=== PATIENT | female | born 1935 | race Caucasian/White ===

== ENCOUNTER → 2018-05-04 | Outpatient (CLI) | payer OTHER ==
[~2018-05-04] MED LIST: ASACOL HD800 MG PO; AVALIDE 300-251 EACH PO; COZAAR 50 MG TA50 M2 PO; CYMBALTA60 MG PO; GLIPIZIDE 10 MG10 MG PO; GLIPIZIDE ER5 MG PO; GLUCOPHAGE XR500 MG PO; HYDROCHLOROTH12.5 M1 PO; IBU600 MG PO; IBUPROFEN 800800 M1 PO; IMURAN 50MG TAB50 M1 PO; IRON 100 PLUS1 EACH PO; KLOR-CON 1010 MEQ PO; LAC-HYDRIN FIV226 GM TOP; LASIX 20 MG TAB20 MG PO; LOMOTIL TABLET1 EACH PO; MEDROL4 MG PO; MIRAPEX1 MG PO; NEURONTIN 300300 M1 PO; OPIUM TINC10 MG/1 M1 PO; REQUIP0.5 MG PO; VIT E; VITAMIN D1000 UNI1 PO; VITAMIN E400 UNIT PO; VITAMINC500 PO; XIFAXAN550 M1 PO; ZANTAC 150MG T150 MG PO; ZOCOR 20 MG TAB20 M1 PO; ZOCOR20 MG PO; [UNRECOGNIZED DRUG - OTHER]
== END ==
LOC: HYPER 04-28 08:40
DX: E11.621 Type 2 diabetes mellitus with foot ulcer (principal); L89.613 Pressure ulcer of right heel, stage 3; L97.411 Non-pressure chronic ulcer of right heel and midfoot limited to breakdown of skin; L03.116 Cellulitis of left lower limb; L03.115 Cellulitis of right lower limb; E11.40 Type 2 diabetes mellitus with diabetic neuropathy, unspecified; E11.36 Type 2 diabetes mellitus with diabetic cataract; E11.39 Type 2 diabetes mellitus with other diabetic ophthalmic complication; H40.9 Unspecified glaucoma; E11.51 Type 2 diabetes mellitus with diabetic peripheral angiopathy without gangrene; I10 Essential (primary) hypertension; I89.0 Lymphedema, not elsewhere classified; E66.9 Obesity, unspecified; E78.5 Hyperlipidemia, unspecified; K21.9 Gastro-esophageal reflux disease without esophagitis; M19.90 Unspecified osteoarthritis, unspecified site; Z79.84 Long term (current) use of oral hypoglycemic drugs; Z85.59 Personal history of malignant neoplasm of other urinary tract organ; Z98.49 Cataract extraction status, unspecified eye; Z68.39 Body mass index [BMI] 39.0-39.9, adult

== ENCOUNTER → 2018-05-08 | Outpatient (CLI) | payer OTHER ==
[~2018-05-08] VITALS: Ht 152.4 cm; Wt 90.7 kg
[2018-05-08 08:26] VITALS: BP 177/71
[2018-05-08 08:35] LABS: HEMATOCRIT 31.3 % (37.0-47.0); HEMOGLOBIN 10.6 gm/dL (12.0-15.0); MCH 28.7 pg (26.0-34.0); MCHC 33.8 g/dL (28.0-37.0); MCV 84.8 fL (80.0-100.0); RBC 3.69 mil/uL (4.20-5.00); RDW 14.7 % (10.5-14.5); WBC 6.9 thou/uL (4.0-11.0)
[2018-05-08 08:45] LABS: CALCIUM 8.8 mg/dL (8.5-10.1); CREATININE 1.1 mg/dL (0.6-1.0); POTASSIUM 4.2 mmol/L (3.5-5.1)
== END | disposition home or self-care (01) ==
LOC: SPEC 07:36
PROVIDERS: Radiology Vascular & Interventional Radiology
DX: M80.88XA Other osteoporosis with current pathological fracture, vertebra(e), initial encounter for fracture (principal); K50.90 Crohn's disease, unspecified, without complications; Z90.710 Acquired absence of both cervix and uterus; Z98.890 Other specified postprocedural states; E11.40 Type 2 diabetes mellitus with diabetic neuropathy, unspecified; I10 Essential (primary) hypertension

== ENCOUNTER → 2018-05-25 | Outpatient (CLI) | payer OTHER | LOC: HYPER 07:04 | DX: E11.621 Type 2 diabetes mellitus with foot ulcer (principal); L97.411 Non-pressure chronic ulcer of right heel and midfoot limited to breakdown of skin; L89.613 Pressure ulcer of right heel, stage 3; E11.40 Type 2 diabetes mellitus with diabetic neuropathy, unspecified; E11.36 Type 2 diabetes mellitus with diabetic cataract; E11.39 Type 2 diabetes mellitus with other diabetic ophthalmic complication; H40.89 Other specified glaucoma; E11.51 Type 2 diabetes mellitus with diabetic peripheral angiopathy without gangrene; I89.0 Lymphedema, not elsewhere classified; I10 Essential (primary) hypertension; L03.116 Cellulitis of left lower limb; L03.115 Cellulitis of right lower limb; E66.9 Obesity, unspecified; E78.5 Hyperlipidemia, unspecified; Z85.54 Personal history of malignant neoplasm of ureter; K21.9 Gastro-esophageal reflux disease without esophagitis; M19.90 Unspecified osteoarthritis, unspecified site; Z68.39 Body mass index [BMI] 39.0-39.9, adult; Z79.84 Long term (current) use of oral hypoglycemic drugs; Z98.49 Cataract extraction status, unspecified eye ==

== ENCOUNTER → 2018-06-09 | Outpatient (CLI) | payer OTHER | LOC: HYPER 07:01 | DX: E11.621 Type 2 diabetes mellitus with foot ulcer (principal); L89.613 Pressure ulcer of right heel, stage 3; L97.411 Non-pressure chronic ulcer of right heel and midfoot limited to breakdown of skin; L03.116 Cellulitis of left lower limb; I89.0 Lymphedema, not elsewhere classified; E11.40 Type 2 diabetes mellitus with diabetic neuropathy, unspecified; E66.9 Obesity, unspecified; E78.5 Hyperlipidemia, unspecified; E11.36 Type 2 diabetes mellitus with diabetic cataract; E11.39 Type 2 diabetes mellitus with other diabetic ophthalmic complication; H40.9 Unspecified glaucoma; E11.51 Type 2 diabetes mellitus with diabetic peripheral angiopathy without gangrene; K21.9 Gastro-esophageal reflux disease without esophagitis; M19.90 Unspecified osteoarthritis, unspecified site; Z85.42 Personal history of malignant neoplasm of other parts of uterus; Z79.84 Long term (current) use of oral hypoglycemic drugs; Z68.39 Body mass index [BMI] 39.0-39.9, adult ==

== ENCOUNTER → 2018-08-11 | Outpatient (CLI) | payer OTHER | LOC: HYPER 07:05 | DX: E11.621 Type 2 diabetes mellitus with foot ulcer (principal); L97.411 Non-pressure chronic ulcer of right heel and midfoot limited to breakdown of skin; L89.613 Pressure ulcer of right heel, stage 3; L84 Corns and callosities; E11.51 Type 2 diabetes mellitus with diabetic peripheral angiopathy without gangrene; E11.40 Type 2 diabetes mellitus with diabetic neuropathy, unspecified; E11.36 Type 2 diabetes mellitus with diabetic cataract; E11.39 Type 2 diabetes mellitus with other diabetic ophthalmic complication; H40.9 Unspecified glaucoma; E66.9 Obesity, unspecified; E78.5 Hyperlipidemia, unspecified; I89.0 Lymphedema, not elsewhere classified; I10 Essential (primary) hypertension; K21.9 Gastro-esophageal reflux disease without esophagitis; M19.90 Unspecified osteoarthritis, unspecified site; F32.9 Major depressive disorder, single episode, unspecified; Z85.42 Personal history of malignant neoplasm of other parts of uterus; Z68.39 Body mass index [BMI] 39.0-39.9, adult; Z79.84 Long term (current) use of oral hypoglycemic drugs ==

== ENCOUNTER → 2018-08-27 | Outpatient (CLI) | payer OTHER | LOC: HYPER 06:27 | DX: E11.621 Type 2 diabetes mellitus with foot ulcer (principal); L97.411 Non-pressure chronic ulcer of right heel and midfoot limited to breakdown of skin; L89.613 Pressure ulcer of right heel, stage 3; L84 Corns and callosities; E11.51 Type 2 diabetes mellitus with diabetic peripheral angiopathy without gangrene; E11.36 Type 2 diabetes mellitus with diabetic cataract; E11.40 Type 2 diabetes mellitus with diabetic neuropathy, unspecified; E11.39 Type 2 diabetes mellitus with other diabetic ophthalmic complication; H40.9 Unspecified glaucoma; E66.9 Obesity, unspecified; E78.5 Hyperlipidemia, unspecified; I89.0 Lymphedema, not elsewhere classified; I10 Essential (primary) hypertension; K21.9 Gastro-esophageal reflux disease without esophagitis; M19.90 Unspecified osteoarthritis, unspecified site; F32.9 Major depressive disorder, single episode, unspecified; Z79.84 Long term (current) use of oral hypoglycemic drugs; Z85.42 Personal history of malignant neoplasm of other parts of uterus ==

== ENCOUNTER → 2018-09-16 | Outpatient (CLI) | payer OTHER | LOC: HYPER 06:50 | DX: E11.621 Type 2 diabetes mellitus with foot ulcer (principal); L97.411 Non-pressure chronic ulcer of right heel and midfoot limited to breakdown of skin; L89.613 Pressure ulcer of right heel, stage 3; E11.51 Type 2 diabetes mellitus with diabetic peripheral angiopathy without gangrene; E11.40 Type 2 diabetes mellitus with diabetic neuropathy, unspecified; E11.36 Type 2 diabetes mellitus with diabetic cataract; E11.39 Type 2 diabetes mellitus with other diabetic ophthalmic complication; H40.9 Unspecified glaucoma; E66.9 Obesity, unspecified; E78.5 Hyperlipidemia, unspecified; I89.0 Lymphedema, not elsewhere classified; I10 Essential (primary) hypertension; L84 Corns and callosities; K21.9 Gastro-esophageal reflux disease without esophagitis; M19.90 Unspecified osteoarthritis, unspecified site; F32.9 Major depressive disorder, single episode, unspecified; Z85.42 Personal history of malignant neoplasm of other parts of uterus; Z79.84 Long term (current) use of oral hypoglycemic drugs ==

== ENCOUNTER → 2020-06-23 | Outpatient (CLI) | payer OTHER ==
[~2020-06-23] VITALS: Ht 152.4 cm; Wt 63.5 kg
[~2020-06-23] MED LIST changes: +CARVEDILOL12.5 MG PO; +COSOPT PF EYE1 EACH OPHTHALMIC; +DILTIAZEM 24HR120 M1 PO; +ELIQUIS5 MG PO; +FAMOTIDINE 40 M40 M1 PO; +IRON325 PO; +METHADONE HCL5 MG PO; +NORCO 5-325 TA1 EAC2 PO; +TESSALON PERLE100 M1 PO; +TRIAMCINOLONE A80 G2 TOP
[2020-06-23 10:44] VITALS: BP 148/67
--- NOTE | 2020-06-23 11:26 | NUR ---
Pain Clinic Assessment: 1. History of Osteoarthritis: SPINE History of Rheumatoid Arthritis: DENIES 2. Height: 5 ft. 0 in. 152.4 cm. Weight: 140.0 lb. oz. 63.504 kg. Patient's BMI: 27.3 3. Vital Signs: BP: 148/67 Pulse: 61 Resp: 14 Temp: 02 Sat: 100 ECG Mon: 4. Pain Intensity: 10 5. Fall Risk: Dizziness: N Needs help standing or walking: Y Fallen in the last 3 months: N Fall risk comments: WHEELCHAIR 6. Patient on Blood Thinner: ELIQUIS 7. History of Hypertension: N 8. Opioid Therapy greater than 6 weeks: Y Opiate Contract Signed: 9. Risk Assessment Tool Provided: 0 LOW 10. Functional Assessment Tool: 70/70 11. Recreational Drug Use: Never Drug Type: Tobacco Use: Never Smoker Tobacco Type: Amount or Packs/day: How Many Years: Alcohol Use: No Frequency: Quant:
--- NOTE | 2020-07-07 12:54 | HPC ---
[facility] [place] [address] PAIN MANAGEMENT CONSULTATION Name: ELIE REICH [id number] Admission: 06/23/20 Attend Phys: Fátima Palacios MD Discharge: Date of : 33 Report #: [id number] THIS REPORT FOR: cc: Risa Cardenas MD,Risa Palacios,Fátima Peters MD ~ CC: Fátima Cardenas DATE OF SERVICE: 06/23/2020 CHIEF COMPLAINT: Left knee pain and left foot pain because of neuropathy. HISTORY: The patient is an 85-year-old female who has been referred to the Pain Clinic for evaluation of knee and foot pain. The patient has been having problems since 2018. She describes it as a constant, aching, burning and sharp pain. The intensity of the pain is rated as 10/10. It is exacerbated by standing, walking, and somewhat improves while sitting. She feels that there is some edema in her feet. She has tried Lyrica, but did not notice a significant improvement in the pain. She describes difficulty wearing shoes. Sleep is problematic. She constantly shifts the position of her legs because of the chronicity of her pain. She has been told she has osteomyelitis involving her foot. She has seen a furniture sprayer in the past. She had injury to the Achilles tendon. She does have diabetes. She does have vascular insufficiency in conjunction with significant lymphedema. She has had diabetic ulcers. She has seen an orthopedic surgeon and he does not feel surgery is an option at this juncture. ALLERGIES: No known drug allergies. CURRENT MEDICATIONS: Cymbalta 60 mg, Eliquis 5 mg b.i.d., melatonin 3 mg, Remeron 15 mg at bedtime, 20 mEq potassium, Tylenol with Codeine No. 3 q. 6 hours p.r.n., hydrocodone 5/325 one p.o. q. 12 hours p.r.n., Lasix 40 mg, Cardizem 120 mg, carvedilol 3.125 mg, zinc 220, B complex 50, Pepcid 40 mg, fiber therapy 500 mg, Lidoderm patches, Glucotrol b.i.d., simvastatin 20 mg, vitamin D 2000 units, ascorbic acid, complex iron. PAST MEDICAL HISTORY: 1. Osteomyelitis in 2019. 2. Paroxysmal atrial fibrillation. 3. L1 compression fracture. 4. Diabetes type 2 since 1997. 5. Diabetic peripheral neuropathy. 6. Obesity. 7. Hypertension. 8. [place] [address] PAIN MANAGEMENT CONSULTATION Name: ELIE REICH Room #: REG [facility]#: [id number] Admission: 06/23/20 Attend Phys: Fátima Palacios MD Discharge: Date of : 33 Report #: [id number] 9. Vitamin B12 deficiency. 10. History of uterine cancer. 11. Glaucoma. 12. History of iritis. 13. Vitamin D deficiency. 14. Bilateral knee pain with degenerative joint disease. 15. Endometriosis 1997. 16. Lymphedema. 17. Hyperlipidemia. 18. Small-bowel obstruction in 2019. PAST SURGICAL HISTORY: 1. Total abdominal hysterectomy with bilateral salpingo-oophorectomy, grade 2 adenocarcinoma of the endometrium. 2. Multiple eye surgeries. 3. Hammertoe repair. 4. Kyphoplasty in 2018. 5. Removal of 32 cm small bowel in 2019. 6. Partial calcaneus excision in 2019. 7. Back surgery in 2018, vertebroplasty. 8. Ring finger surgery in 2017. SOCIAL HISTORY: She is retired for 30 years. REVIEW OF SYSTEMS: Decreased appetite, weakness, fatigue, eye disease, wears glasses, glaucoma/cataracts, hearing loss, heart trouble, shortness of breath while lying flat, rash and itching, numbness and tingling sensation, nervousness, diabetes, hot and cold intolerance, bleeding and bruising, anemia. LABORATORY DATA: No laboratory values are available at the time of our interview. PAIN CLINIC ASSESSMENT AND PQRS: 1. The patient has some osteoarthritic changes in her spine. She is not being treated for rheumatoid arthritis. 2. Height 5 feet 0 inch, weight 140 pounds, BMI is 27.3. 3. Vital signs: Blood pressure 148/67, pulse 61, respiratory rate 14, room air saturation 100%. 4. Pain intensity: 10/10. 5. Fall history: The patient has not fallen. She is in a wheelchair. 6. Blood thinner: The patient is on Eliquis. 7. Hypertension: The patient is not being treated for hypertension. 8. Opioids greater than 6 weeks: The patient receives medications from her primary. 9. Risk assessment tool: Low for opioid use. 10. Functional assessment tool: 70/70. [facility] [address] [place] [address] PAIN MANAGEMENT CONSULTATION Name: ELIE REICH Room #: REG [facility] Nagel#: [id number] Admission: 08/14/20 Attend Phys: Fátima Palacios MD Discharge: Date of : 33 Report #: [id number] 11. Recreational drug use: The patient denies. 12. Tobacco: The patient does not smoke. 13. Alcohol: The patient denies frequent use of alcoholic beverages. PHYSICAL EXAMINATION: GENERAL: The patient is a well-developed, obese female. Appears her stated age. She is alert and oriented x 3. Affect is appropriate. Speech is fluent. HEENT: Normocephalic, atraumatic. Extraocular eye muscles intact. The patient is wearing a face covering. LUNGS: Generally clear. HEART: Regular rate. ABDOMEN: Nontender. Bowel sound is present. MUSCULOSKELETAL: Upper extremity 4+/5 for the major muscle groups in the upper extremity. Lower extremity, the patient complains of pain in her left and right knee. She complains of pain down in her feet. IMPRESSION: 1. Chronic knee and foot pain. 2. Diabetes mellitus since 1997. 3. Osteomyelitis in 2019. 4. Paroxysmal atrial fibrillation. 5. L1 compression fracture. 6. Diabetic peripheral neuropathy. 7. Obesity. 8. Hypertension. 9. Crohn's disease. 10. Vitamin B12 deficiency. 11. History of uterine cancer. 12. Glaucoma. 13. History of iritis. 14. Vitamin D deficiency. 15. Bilateral knee pain with degenerative joint disease. 16. Endometriosis 1997. 17. Lymphedema. 18. Hyperlipidemia. 19. Small-bowel obstruction in 2019. RECOMMENDATIONS: We discussed treatment options with the patient. At this juncture, we will consider methadone to help with pain control. Methadone has characteristics that can be helpful with neuropathic pain where other opioid medications are not as effective. We will have the patient try methadone 5 mg daily. We will continue to increase this medication as she is able to tolerate it. Hopefully, it will be able to gain and improve control over her chronic pain situation. The patient will stop taking the hydrocodone. [facility] [address] [place] [address] PAIN MANAGEMENT CONSULTATION Name: ELIE REICH Room #: [facility] Nagel#: [id number] Admission: 06/23/20 Attend Phys: Fátima Palacios MD Discharge: Date of : 33 Report #: [id number] We would like to thank you for letting us participate in her care. We hope she continues to improve. <ELECTRONICALLY SIGNED> By: Fátima Palacios MD 07/07/20 1254 [id number] Fátima Palacios MD /nt
== END ==
LOC: PAIN 06:54
PROVIDERS: ATTEND Anesthesiology Pain Medicine
DX: M17.0 Bilateral primary osteoarthritis of knee (principal); G90.09 Other idiopathic peripheral autonomic neuropathy; E11.9 Type 2 diabetes mellitus without complications; M19.90 Unspecified osteoarthritis, unspecified site; I48.0 Paroxysmal atrial fibrillation; M48.56XA Collapsed vertebra, not elsewhere classified, lumbar region, initial encounter for fracture; E66.9 Obesity, unspecified; I10 Essential (primary) hypertension; D51.9 Vitamin B12 deficiency anemia, unspecified; H40.9 Unspecified glaucoma; M25.561 Pain in right knee; R59.0 Localized enlarged lymph nodes; E78.5 Hyperlipidemia, unspecified; Z87.19 Personal history of other diseases of the digestive system; Z85.42 Personal history of malignant neoplasm of other parts of uterus; Z87.42 Personal history of other diseases of the female genital tract

== ENCOUNTER → 2020-07-26 | Outpatient (CLI) | payer OTHER ==
--- NOTE | ~2020-07-26 | HPC ---
[facility] [place] [address] [place] [address] PAIN MANAGEMENT CONSULTATION Name: ELIE REICH Room #: REG [facility]#: [id number] Admission: 07/26/20 Attend Phys: Fátima Palacios MD Discharge: Date of : 33 Report #: [id number] THIS REPORT FOR: cc: Risa Cardenas MD,Risa Palacios,Fátima Peters MD ~ CC: Fátima Cardenas DATE OF SERVICE: 07/26/2020 THIS IS A TELEHEALTH VISIT CHIEF COMPLAINT: Left knee pain and foot pain with neuropathy. HISTORY: The patient is an 85-year-old female who has been seen in the Pain Clinic because of chronic pain. It involves her knee on the left side as well as her foot. She has been having problems with this since 2018. She describes the discomfort as intense. Pain can rise to the level of 10/10. She has been provided methadone to help control the pain. She has been taking this medication and does not notice a significant improvement in the pain yet. She is not having any problems with side effects. She does have lymphedema in the affected area. She has diabetes. She has been told that she has osteomyelitis involving her foot. ALLERGIES: No known drug allergies. CURRENT MEDICATIONS: Cymbalta 60 mg, Eliquis 5 mg b.i.d., melatonin 3 mg, Remeron 15 mg at bedtime, potassium 20 mEq, Tylenol with Codeine No. 3 q. 6 hours, hydrocodone 5/325 one p.o. q. 12 hours, Lasix 40 mg, Cardizem 120 mg, Coreg 3.125 mg, zinc 220 mg, B complex 50, Pepcid 40 mg, Fiber Therapy 500 mg, Lidoderm patches, Glucotrol b.i.d., simvastatin 20 mg, vitamin D 200 units, ascorbic acid, complex iron. PAIN CLINIC ASSESSMENT AND PQRS: 1. The patient has history of osteoarthritis with changes in her spine. She is not being treated for rheumatoid arthritis. 2. Height 5 feet 0 inch. Last weight 140 pounds, BMI 27. 3. Pain intensity: 9-10/10. 4. Fall history: The patient has not fallen. She does ambulate in a wheelchair. 5. Blood thinner: The patient is on Eliquis. 6. Hypertension: The patient is being treated for hypertension. 7. Opioids greater than 6 weeks: The patient receives medications from her primary. 8. Risk assessment tool: Low for opioid use. [facility] [address] [place] [address] PAIN MANAGEMENT CONSULTATION Name: ELIE REICH [facility] [id number] Admission: 07/26/20 Attend Phys: Fátima Palacios MD Discharge: Date of : 33 Report #: [id number] 9. Functional assessment tool: 70/70. 10. Recreational drug use: The patient denies. 11. Tobacco: The patient does not smoke. 12. Alcohol: The patient denies frequent use of alcoholic beverages. REVIEW OF SYSTEMS: CONSTITUTIONAL SYMPTOMS: Fatigue and weakness. EAR, NOSE, AND THROAT: Decreased hearing. CARDIOVASCULAR: Shortness of breath when lying flat. RESPIRATORY: Unremarkable. GASTROINTESTINAL: Some loss of appetite. GENITOURINARY: Incontinence with frequent urination. MUSCULOSKELETAL: Generally good health lately. INTEGUMENT: Rash and itching. NEUROLOGIC: Numbness and tingling sensation. PSYCHIATRIC: Nervousness. ENDOCRINE: Diabetes, heat and cold intolerance. HEMATOLOGIC AND LYMPHATIC: Anemia, easy bruising. ALLERGIC AND IMMUNOLOGIC: Unremarkable. IMPRESSION: 1. Chronic knee and foot pain. 2. Diabetes mellitus since 1997. 3. Osteomyelitis in 2019. 4. Paroxysmal atrial fibrillation. 5. L1 compression fracture history. 6. Diabetic peripheral neuropathy. 7. Obesity. 8. Hypertension. 9. Crohn's disease. 10. Vitamin B12 deficiency. 11. History of uterine cancer. 12. Glaucoma. 13. History of iritis. 14. Vitamin D deficiency. 15. Bilateral knee pain and degenerative joint disease. 16. Endometriosis 1997. 17. Lymphedema. 18. Hyperlipidemia. 19. Small bowel obstruction in 2019. RECOMMENDATIONS: We discussed the treatment with the patient. The patient is unable to come to the pain clinic today. She requested a telemedicine visit. A visit with the patient was provided. At this juncture, we will continue with the patient's use of methadone, she is taking 5 mg 1 p.o. b.i.d. We have explained that sometimes it may take a while for this medication to become more [address] [address] PAIN MANAGEMENT CONSULTATION Name: ELIE REICH Room #: REG [facility]AXON Nagel#: [id number] Admission: 07/26/20 Attend Phys: Fátima Palacios MD Discharge: Date of : 33 Report #: [id number] therapeutic. We will have her take 5 mg t.i.d. She will call us if she has any concerns. A script for her medication has been relayed to her pharmacy. She will call us if she has any concerns. We would like to thank you for letting us participate in her care. We hope she continues to improve. By: [id number] Fátima Palacios MD /timi
== END ==
LOC: PAIN 06:54 → TELEPC 06:54 → PAIN 08:17
PROVIDERS: ATTEND Anesthesiology Pain Medicine
DX: M17.0 Bilateral primary osteoarthritis of knee (principal); M25.562 Pain in left knee; M79.672 Pain in left foot; G62.9 Polyneuropathy, unspecified; E11.9 Type 2 diabetes mellitus without complications; I48.0 Paroxysmal atrial fibrillation; E11.40 Type 2 diabetes mellitus with diabetic neuropathy, unspecified; I10 Essential (primary) hypertension; E53.8 Deficiency of other specified B group vitamins; E55.9 Vitamin D deficiency, unspecified; E78.5 Hyperlipidemia, unspecified; E66.9 Obesity, unspecified; K50.90 Crohn's disease, unspecified, without complications; M86.9 Osteomyelitis, unspecified; H40.9 Unspecified glaucoma

== ENCOUNTER → 2020-09-13 | Outpatient (CLI) | payer OTHER ==
[~2020-09-13] VITALS: Ht 152.4 cm; Wt 61.2 kg
[~2020-09-13] MED LIST changes: +HYDROCODON-ACE1 EAC8 PO; +TOLTERODINE TART2 M1 PO
[2020-09-13 10:27] VITALS: BP 129/60
--- NOTE | 2020-09-13 10:36 | NUR ---
Pain Clinic Assessment: 1. History of Osteoarthritis: SPINE KNEES History of Rheumatoid Arthritis: DENIES 2. Height: 5 ft. 0 in. 152.4 cm. Weight: 135.0 lb. oz. 61.236 kg. Patient's BMI: 26.4 3. Vital Signs: BP: 129/60 Pulse: 74 Resp: 18 Temp: 02 Sat: 100 ECG Mon: 4. Pain Intensity: 0 AT REST 5. Fall Risk: Dizziness: N Needs help standing or walking: N Fallen in the last 3 months: N Fall risk comments: WHEELCHAIR 6. Patient on Blood Thinner: ELIQUIS 7. History of Hypertension: N 8. Opioid Therapy greater than 6 weeks: Y Opiate Contract Signed: 9. Risk Assessment Tool Provided: 0 LOW 10. Functional Assessment Tool: 70/70 11. Recreational Drug Use: Never Drug Type: Tobacco Use: Never Smoker Tobacco Type: Amount or Packs/day: How Many Years: Alcohol Use: No Frequency: Quant:
--- NOTE | 2020-10-12 14:52 | HPC ---
[facility] [place] [address] PAIN MANAGEMENT CONSULTATION Name: ELIE REICH Room #: REG [facility]#: [id number] Admission: 09/13/20 Attend Phys: Fátima Palacios MD Discharge: Date of : 33 Report #: [id number] THIS REPORT FOR: cc: Risa Cardenas MD,Risa Palacios,Fátima Peters MD ~ CC: Fátima Cardenas DATE OF SERVICE: 09/13/2020 CHIEF COMPLAINT: Pain in the feet. HISTORY: The patient is an 85-year-old female who has been experiencing chronic pain involving her feet. This problem has been ongoing since 2018. Pain is quite intense. Rates it as a 10/10. She has been unable to walk for over a year because of left knee pain and development of contractures and bilateral foot neuropathy. She is getting treatment at home with home health. It involves wrapping her legs because of lymphedema. She does have diabetes. She has been told that she has osteomyelitis involving her foot. ALLERGIES: No known drug allergies. CURRENT MEDICATIONS: Cymbalta 60 mg, Eliquis 5 mg b.i.d., melatonin 3 mg, Remeron 15 mg at bedtime, potassium 20 mEq, Tylenol with Codeine No 3 every 6 hours, hydrocodone 5/325 one p.o. every 12 hours, Lasix 40 mg, Cardizem 120 mg, Coreg 3.125 mg, zinc 220 mg, B complex 50, Pepcid 40 mg, fiber therapy 500 mg, Lidoderm patches, Glucotrol b.i.d., simvastatin 20 mg, vitamin D 200 units, ascorbic acid, and complex iron. PAIN CLINIC ASSESSMENT AND PQRS: 1. The patient has a history of osteoarthritis with changes in her spine. She is not being treated for rheumatoid arthritis. 2. Height 5 feet 0 inches, weight 135 pounds, BMI is 26.4. 3. Vital Signs: Blood pressure 129/60, pulse 74, respiratory rate 18, and room air saturation 100%. 4. Pain intensity is 0 at rest, 5-6 when she is on a chair or going to the car. Notes spasms down her leg to the level of her feet with activity. 5. Fall risk. The patient has not fallen. She is in a wheelchair. 6. Blood thinner. The patient is receiving Eliquis. 7. History of hypertension. The patient is not being treated for hypertension. 8. Opioids. The patient receives medications from her primary. 9. Risk assessment tool, low for opioid use. 10. Functional assessment tool, 70/70. 11. Recreational drug use: The patient denies. 12. Tobacco: The patient has never smoked. [address] [address] PAIN MANAGEMENT CONSULTATION Name: ELIE REICH [id number] Admission: 09/13/20 Attend Phys: Fátima Palacios MD Discharge: Date of : 33 Report #: [id number] 13. Alcohol. The patient denies frequent use of alcoholic beverages. PHYSICAL EXAMINATION: GENERAL: The patient is a well-developed, well-nourished, obese female. Appears her stated age. She is alert and oriented x 3. Her speech is fluent. HEENT: Normocephalic, atraumatic. Extraocular eye muscles intact. The patient is wearing a facial covering. LUNGS: Generally clear. HEART: Regular rate. ABDOMEN: Nontender. Bowel sounds present. MUSCULOSKELETAL: Upper extremity muscle strength 4+/5 for the major muscle groups in the upper extremity. Lower extremity, the patient complains of pain in her left and right knee. Has pain and discomfort down into her feet. IMPRESSION: 1. Chronic knee and foot pain. 2. Diabetes mellitus since 1998. 3. Osteomyelitis since 2018. 4. Paroxysmal atrial fibrillation. 5. L1 compression fracture history. 6. Diabetic peripheral neuropathy. 7. Obesity. 8. Hypertension. 9. Crohn's disease. 10. Vitamin B12 deficiency. 11. History of uterine cancer. 12. Glaucoma. 13. History of iritis. 14. Vitamin D deficiency. 15. Bilateral knee pain and degenerative joint disease. 16. Endometriosis in 1997. 17. Lymphedema. 18. Hyperlipidemia. 19. Small-bowel obstruction in 2019. RECOMMENDATIONS: We will refill the patient's hydrocodone medication. At this juncture, she feels that that medication has been reasonably successful. A script for hydrocodone 7.5 mg 1 p.o. every 6 hours has been written. The patient will call us if she has any problems with the medication. We would like to thank you for letting us participate in her care. We hope she [address] [address] PAIN MANAGEMENT CONSULTATION Name: DAMIRELIE L Room #: REG [facility] Robe#: [id number] Admission: 09/13/20 Attend Phys: Fátima Palacios MD Discharge: Date of : 33 Report #: [id number] continues to improve. She will stop taking the medication should she develop problems with her mental acuity or clouding of her sensorium. <ELECTRONICALLY SIGNED> By: Fátima Palacios MD 10/12/20 [id number] Fátima Palacios MD /nt
== END ==
LOC: PAIN 08-30 06:51
PROVIDERS: ATTEND Anesthesiology Pain Medicine
DX: E11.40 Type 2 diabetes mellitus with diabetic neuropathy, unspecified (principal); E66.9 Obesity, unspecified; I10 Essential (primary) hypertension; K50.90 Crohn's disease, unspecified, without complications; D51.9 Vitamin B12 deficiency anemia, unspecified; E55.9 Vitamin D deficiency, unspecified; E78.5 Hyperlipidemia, unspecified; R59.0 Localized enlarged lymph nodes; M17.0 Bilateral primary osteoarthritis of knee; I48.0 Paroxysmal atrial fibrillation; E11.39 Type 2 diabetes mellitus with other diabetic ophthalmic complication; Z87.42 Personal history of other diseases of the female genital tract; Z87.39 Personal history of other diseases of the musculoskeletal system and connective tissue; Z87.81 Personal history of (healed) traumatic fracture; Z85.42 Personal history of malignant neoplasm of other parts of uterus; Z87.19 Personal history of other diseases of the digestive system; Z86.69 Personal history of other diseases of the nervous system and sense organs; Z79.899 Other long term (current) drug therapy

== ENCOUNTER → 2020-10-18 | Outpatient (CLI) | payer OTHER ==
[~2020-10-18] VITALS: Ht 152.4 cm; Wt 63.5 kg
[~2020-10-18] MED LIST changes: +HYDROCODON-ACE1 EAC5 PO; +ZANAFLEX4 M2 PO
[2020-10-18 13:28] VITALS: BP 143/66
--- NOTE | 2020-10-18 13:43 | NUR ---
Pain Clinic Assessment: 1. History of Osteoarthritis: SPINE KNEES History of Rheumatoid Arthritis: DENIES 2. Height: 5 ft. 0 in. 152.4 cm. Weight: 140.0 lb. oz. 63.504 kg. Patient's BMI: 27.3 3. Vital Signs: BP: 143/66 Pulse: 76 Resp: 20 Temp: 02 Sat: 100 ECG Mon: 4. Pain Intensity: 1 TO 2; 5 DAY AND 8 AT HS 5. Fall Risk: Dizziness: N Needs help standing or walking: Y Fallen in the last 3 months: N Fall risk comments: WHEELCHAIR 6. Patient on Blood Thinner: PENG 7. History of Hypertension: N 8. Opioid Therapy greater than 6 weeks: Y Opiate Contract Signed: 9. Risk Assessment Tool Provided: 0 LOW 10. Functional Assessment Tool: 70/70 11. Recreational Drug Use: Never Drug Type: Tobacco Use: Never Smoker Tobacco Type: Amount or Packs/day: How Many Years: Alcohol Use: No Frequency: Quant:
--- NOTE | 2020-10-19 08:20 | HPC ---
[facility] [address] [place] [address] PAIN MANAGEMENT CONSULTATION Name: ELIE REICH Room #: REG [facility].#: [id number] Admission: 10/18/20 Attend Phys: Dot Cifuentes Discharge: Date of : 31 Report #: [id number] THIS REPORT FOR: cc: Risa Cardenas MD, Sequita MD Hocker,Dot LAM ~ DATE OF SERVICE: 10/18/2020 CHIEF COMPLAINT: Neuropathic pain in her bilateral feet. HISTORY OF PRESENT ILLNESS: This is an 85-year-old female who is accompanying with her daughter today. They are reporting her pain is increasing at night. She believes her pain is well controlled in the morning, rating it a 1-2. By bedtime her pain is escalated to an 8 and 9 in her bilateral feet. It is a constant, burning, sharp spasm discomfort that is worse when her feet are elevated as well as any time there is pressure on her feet bilaterally. She believes her most beneficial position is sitting. She does not feel that the hydrocodone has been as beneficial as they would hope for. The daughter states that they were on hydrocodone prior to the methadone and at that time, it was not beneficial in relieving her pain. The patient denies any problems with constipation or daytime somnolence as a result of her pain medications. Today, they would like to discuss other treatment options for pain control. ALLERGIES: No known drug allergies. CURRENT LIST OF MEDICATIONS: Hydrocodone 7.5/325 p.r.n., iron, Cosopt eye drops, diltiazem, Coreg, Eliquis, Mirapex, Glucotrol, potassium, Zocor, and vitamin D. PQRS: 1. 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 Denies any rheumatoid arthritis. 2. Height is 5 feet, weight is 140, BMI is 27. 3. Vital signs; blood pressure 143/66, pulse is 76, respirations 20, oxygen sat is 100. 4. Pain score, ranges from 1-2 to 8/10. 5. Denies dizziness. Does need assistance with ambulation and is mostly in a wheelchair, has not fallen in the last 3 months. 6. The patient is on Eliquis as well as medicines for hypertension. 7. Opioid therapy is greater than [address] an opioid contract in her chart. Her risk assessment is low. Functional assessment is 70/70 8. Recreational drug use, she denies. She is not a smoker and does not drink alcohol. According to the prescription monitoring system, the patient is past due to fill her medications. Her morphine milliequivalent is 45 MME per day. [address] [address] PAIN MANAGEMENT CONSULTATION Name: ELIE REICH Neal Room #: REG JAXON Nagel#: [id number] Admission: 10/18/20 Attend Phys: Dot Cifuentes Discharge: Date of : 31 Report #: [id number] PHYSICAL EXAMINATION: GENERAL: This is a well-developed, well-nourished, slightly obese female who appears her stated age. She is a good historian. Her speech is fluent. She is alert and orientated, rating her pain from 1-8/10 today. HEENT: Normocephalic, atraumatic. Extraocular eye muscles are intact. She is wearing a facial mask. MUSCULOSKELETAL: Pain is in her feet bilaterally. She is wearing PRAFO boots bilaterally. Pain greater on the left than the right. Upper extremity, strength is 4/5 in major muscle groups and deconditioned in her lower extremities. Pain increases with ambulation. IMPRESSION: 1. Chronic knee and foot pain. 2. Diabetes mellitus. 3. Osteomyelitis. 4. Paroxysmal atrial fibrillation. 5. L1 compression fracture. 6. Diabetic peripheral neuropathy. 7. History of uterine cancer. 8. Lymphedema. We reviewed the fact that opiate medications are being used to provide analgesia adequate to support activities of daily living, not attempting to achieve a specific pain score on the 0-10 Visual Analog Scale. The current opiate medications are providing sufficient analgesia to allow the patient to participate in activities of daily living. The patient is not exhibiting any aberrant behavior suggestive of drug diversion. The patient is not having any adverse reactions to medications. The patient is not suffering from daytime somnolence or mental acuity changes. The patient is managing opiate-induced constipation with appropriate omis-zxk-obvhjdm agents and dietary considerations. The patient was counseled on concern for caution with operating a motor vehicle while using opiate medications. PLAN: 1. We discussed treatment options with the patient today. Per the daughter's report, pain increases for the patient after her evening meal when she does get ready for bed and her legs are elevated. In the morning per their report, her pain is controlled. We discussed various treatment options. The patient has found methadone and hydrocodone 5/325 ineffective in controlling her pain in the past. We did briefly discuss Nucynta as a possible option, but we will continue her currently on hydrocodone, increasing the dose slightly to 10/325. this is a doubling of her medicine that she came to us on. The patient encouraged to take 1 tablet 3 times a day or if she finds that she is needing more medicine in the evening hours, she may take a half a tablet in the morning, one in the middle of the day and 1-1/2 tablets at bedtime. The patient and family are [facility] [place] [address] PAIN MANAGEMENT CONSULTATION Name: ELIE REICH Room #: REG JAXON Nagel#: [id number] Admission: 10/18/20 Attend Phys: Dot Cifuentes Discharge: Date of : 31 Report #: [id number] agreeable with the trial of this medication. Scripts sent electronically for #90 pills. 3. The patient complains of increasing spasms in her lower extremities upon evening hours, especially when her legs are elevated. We will trial tizanidine taking a half to one tablet 4 mg tablets at bedtime to see if this aids in her spasms. They are instructed to take it after dinner hours prophylactically. This medication may aid in some of her sleep issues as well. Scripts sent electronically for 30 tablets of Tizanidine 4 mg. 4. We will have the patient follow up in 1 month to see how her current regimen is working. The patient is seen today in collaboration with Dr. Palacios who I discussed this care with. <ELECTRONICALLY SIGNED> By: Dot Cifuentes 10/19/20 08 1459 12 Dot Cifuentes /nt
== END ==
LOC: PAIN 06:54
PROVIDERS: ATTEND Clinical Nurse Specialist Adult Health
DX: M79.671 Pain in right foot (principal); M79.672 Pain in left foot; G89.29 Other chronic pain; M25.561 Pain in right knee; M25.562 Pain in left knee; M86.8X8 Other osteomyelitis, other site; I48.0 Paroxysmal atrial fibrillation; E11.40 Type 2 diabetes mellitus with diabetic neuropathy, unspecified; Z79.891 Long term (current) use of opiate analgesic